=== PATIENT | female | born 1980 | race Caucasian/White ===

== ENCOUNTER → 2017-04-27 | Outpatient (CLI) | payer SELFPAY ==
[~2017-04-27] MED LIST: CYCL10TA29 PO; DOCU-416 PO; DOXY-179 PO; IBUP-56 PO; KET10 PO; LOR5/325 PO; MECL-111 PO; METR-1 PO; OND4 PO; ONDA4TAB PO; OXYC-865 PO; PER PO; PRO25 PO
--- NOTE | 2017-04-27 11:00 | RADIOLOGY IMAGING REPORT ---
FACILITY: [facility] PATIENT NAME: Nighat Rand : 1980 MR: [id number] V: [id number] EXAM DATE: ORDERING PHYSICIAN: YUMIKO CARLOS TECHNOLOGIST: Location: [facility] [place] Patient: Nighat Rand : 1980 Visit/Account:[id number] Date of Sevice: 04/27/2017 GALLBLADDER HISTORY: Right upper quadrant pain for two months tends to be worse after eating COMPARISON: CT abdomen pelvis October 22, 2015 FINDINGS: Gallbladder: Unremarkable; no stones or sludge. Liver: Negative. Common duct: Normal, 2.4 mm diameter. Pancreas: Partially obscured by bowel, visualized aspects unremarkable. Right kidney: Right kidney has a slightly lobulated contour. Right kidney measures 9.9 x 4.6 x 4.7 c m. Resistive index is 0.65 Upper abdominal aorta and IVC: Patent. Ascites: None visualized. IMPRESSION: Unremarkable right upper quadrant ultrasound Report Dictated By: Santa Flaherty MD at 04/27/2017 10:42 AM Report E-Signed By: Santa Flaherty MD at 04/27/2017 10:56 AM WSN:[id number]
== END ==
LOC: US 00:24
PROVIDERS: ATTEND Surgery
DX: R10.11 Right upper quadrant pain (principal)
CPT/HCPCS: 76705